=== PATIENT | female | born 1990 | race American Indian/Alaskan Native ===

== ENCOUNTER 2016-06-26 12:59 | Emergency (ER) | payer MEDICAID ==
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
[2016-06-26] MEDS ORDERED: MOTRIN PO ONE (19:57)
[2016-06-26] MEDS ORDERED: FLEXERIL PO ONE (20:01)
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
[2016-06-26 20:24] VITALS: BP 116/81
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
== END 2016-06-26 20:55 | disposition home or self-care (01) ==
LOC: ED 12:59
DX: S89.91XA Unspecified injury of right lower leg, initial encounter (principal); W19.XXXA Unspecified fall, initial encounter; Y93.89 Activity, other specified; Y99.9 Unspecified external cause status; Y92.89 Other specified places as the place of occurrence of the external cause
CPT/HCPCS: 81025

== ENCOUNTER 2017-01-28 23:53 | Emergency (ER) | payer SELFPAY ==
[2017-01-29 00:16] VITALS: BP 135/63
[2017-01-29 01:27] LABS: Bilirubin,Urine NEG (Negative); Blood,Urine LG (Negative); Ketones,Urine NEG (Negative); Leukocyte Esterase,Urine TR (Negative); Mucus,Urine FEW /HPF; Nitrite,Urine NEG (Negative); Protein,Urine <15 mg/dL mg/dL (Negative); Urobilinogen,Urine < 2.0 mg/dL (<2.0)
[2017-01-29 01:33] LABS: RBC,Urine > 182.0 /HPF (0.0-6.0)
== END 2017-01-29 03:57 | disposition left against medical advice (07) ==
LOC: ED 23:53
DX: Z53.21 Procedure and treatment not carried out due to patient leaving prior to being seen by health care provider (principal)
CPT/HCPCS: 81001; 81025; 93005; 93010

== ENCOUNTER 2017-12-30 07:00 | Emergency (ER) | payer SELFPAY ==
[2017-12-30 07:36] VITALS: BP 114/67
--- NOTE | 2017-12-30 10:15 | Emergency Department Report ---
ED Neck Pain HPI Chief Complaint: Neck Pain/Injury Stated Complaint: LEFT SIDE PAIN Duration: 3 Days Neck Pain Location: Lateral Neck Severity: moderate Mechanism: Awkward Position Symptoms: Yes Pain with Movement, Yes Radiation to Left Upper Ext, No Radiation to Right Upper Ext, No Numbness, No Weakness, No Previous History Other History: This is a 27-year-old -[place] female who presents with neck pain is left side radiating to the left shoulder for 3 days. Patient states she woke up Tuesday in severe pain and can barely her neck. Patient states the day progressed she felt better but upon waking yesterday pain increase. She was on her way to work this morning and could not turn her head to the left second ear pain. Patient reports pain currently as 6 out of 10 on pain scale. Patient states it feels like "a crock is stuck in her neck". She thinks she slept in a year position. Patient denies numbness or tingling, deformity, swelling, bruising, recent injury. ED Review of Systems ROS: Stated complaint: LEFT SIDE PAIN Other details as noted in HPI Constitutional: denies: chills, fever Respiratory: denies: cough, shortness of breath, wheezing Cardiovascular: denies: chest pain, palpitations Gastrointestinal: denies: abdominal pain, nausea, diarrhea Musculoskeletal: arthralgia (neck pain). denies: back pain, joint swelling Skin: denies: rash, lesions Neurological: denies: headache, weakness, paresthesias Psychiatric: denies: anxiety, depression ED Past Medical Hx - Past Medical History Previous Medical History?: No - Surgical History Past Surgical History?: No - Social History Smoking Status: Current Some Day Smoker Substance Use Type: None - Medications Home Medications: Home Medications Medication Instructions Recorded Confirmed Last Taken Type Ondansetron [Zofran Odt] 4 mg PO Q8HR PRN #12 tab.rapdis 07/20/15 Unknown Rx Cyclobenzaprine [Flexeril] 10 mg PO QHS #24 tablet 06/26/16 Unknown Rx Ibuprofen [Motrin 800 MG tab] 800 mg PO Q8HR PRN #30 tablet 06/26/16 Unknown Rx Ibuprofen [Motrin 800 MG tab] 800 mg PO Q8HR PRN #12 tablet 12/30/17 Unknown Rx methOCARBAMOL [Robaxin TAB] 500 mg PO BID #10 tab 12/30/17 Unknown Rx Neck Pain Exam - Exam General: Vital signs noted. No distress. Alert and acting appropriately. HEENT: No Facial Pain, No Scalp Tenderness, No Contusion, No Abrasion, No Laceration Neck Pain: Yes Pain with Rotation Right (helpful muscle spasm on the left trapezius), Yes Pain with Rotation Left, Yes Pain with Extension, Yes Pain with Flexion, Yes pain with R Lateral Flexion, Yes Pain with L Lateral Flexion, No Midline Tenderness, No Right Paraspinal Tenderness, No Left Paraspinal Tenderness, No Right Trapezius Tenderness, No Left Trapezius Tenderness Chest: Yes Clear Lung Sounds, No Pain with Respirations Heart: Yes Regular, No Murmur Back: No Thoracic Tenderness, No Lumbar Tenderness Neuro: No Numbness, No Weakness, No Normal Reflexes, No Radicular Deficits ED Course Vital Signs 12/30/17 07:32 Temperature 98.8 F Pulse Rate 65 Respiratory 16 Rate Blood Pressure 114/67 O2 Sat by Pulse 100 Oximetry ED Medical Decision Making - Radiology Data Radiology results: report reviewed, image reviewed AP AND LATERAL SOFT TISSUES OF THE NECK: History: Neck pain. The contour of the upper airway appears within normal limits. The epiglottis is not enlarged. No prevertebral soft tissue swelling is apparent. No mass density or foreign body is evident. IMPRESSION: Normal study. - Medical Decision Making Patient was examined by me. Vitals are normal and patient is in no acute distress. Obtained a x-ray of soft tissues of neck. X-rays dictated by radiologist and no acute findings. Patient informed of results. Start ibuprofen and Robaxin for muscle spasm. Plan discussed with patient to discharge home and treat outpatient. Patient discharged home in stable condition. Follow up with PCP in 2-3 days. Critical care attestation.: If time is entered above; I have spent that time in minutes in the direct care of this critically ill patient, excluding procedure time. ED Disposition Clinical Impression: Neck pain on left side, Trapezius muscle spasm Disposition: TO HOME OR SELFCARE Is pt being admited?: No Does the pt Need Aspirin: No Condition: Stable Instructions: Muscle Spasm (ED), Cervical Radiculopathy (ED) Additional Instructions: Rest Use ice or heat on affected area for 20 minutes and off for 2 hours. Take pain medication as needed for pain. Don't drive or operate heavy machinery while taking muscle relaxers because they may cause drowsiness. Follow up with Primary Care Provider in 2-3 days. Prescriptions: Ibuprofen [Motrin 800 MG tab] 800 mg PO Q8HR PRN #12 tablet PRN Reason: Pain , Severe (7-10) methOCARBAMOL [Robaxin TAB] 500 mg PO BID #10 tab Referrals: [facility] [place]Note 3[facility] [Outside] - 3-5 Days [facility] [Outside] - 3-5 Days [facility] [Outside] - 3-5 Days Forms: Work/School Release Form(ED) Time of Disposition: 12:20 Print Language: MONGOLIAN
--- NOTE | 2017-12-30 11:17 | XRay Report ---
AP AND LATERAL SOFT TISSUES OF THE NECK: History: Neck pain. The contour of the upper airway appears within normal limits. The epiglottis is not enlarged. No prevertebral soft tissue swelling is apparent. No mass density or foreign body is evident. IMPRESSION: Normal study.
[2017-12-30] MEDS ORDERED: TORADOL IM ONE (12:17)
== END 2017-12-30 12:35 | disposition home or self-care (01) ==
LOC: ED 07:00
DX: M62.838 Other muscle spasm (principal); M54.2 Cervicalgia; F17.200 Nicotine dependence, unspecified, uncomplicated
CPT/HCPCS: 70360; 96372; 99283; J1885

== ENCOUNTER 2018-01-05 10:28 | Emergency (ER) | payer SELFPAY ==
--- NOTE | 2018-01-05 10:54 | Emergency Department Report ---
ED Neck Pain/Injury HPI - General Chief Complaint: Neck Pain/Injury Stated Complaint: NECK/SHOULDER PAIN Time Seen by Provider: 01/05/18 10:43 Mode of arrival: Ambulatory Limitations: No Limitations - History of Present Illness Initial Comments: Patient is a 27-year-old black female who works carrying heavy dishes at work who has pain in the left neck radiating to the left arm. Patient states this is been present for approximately a week and a half. Patient states is a throbbing aching pain. States the pain is 6 out of 10 in severity. Patient's been taking ibuprofen and Robaxin with minimal relief. Patient states is some numb sensations in the left upper extremity at times. Patient denies any fevers chills or trauma. - Related Data Previous Rx's Medication Instructions Recorded Last Taken Type Ondansetron [Zofran Odt] 4 mg PO Q8HR PRN #12 tab.rapdis 07/20/15 Unknown Rx Cyclobenzaprine [Flexeril] 10 mg PO QHS #24 tablet 06/26/16 Unknown Rx Ibuprofen [Motrin 800 MG tab] 800 mg PO Q8HR PRN #30 tablet 06/26/16 Unknown Rx Ibuprofen [Motrin 800 MG tab] 800 mg PO Q8HR PRN #12 tablet 12/30/17 Unknown Rx methOCARBAMOL [Robaxin TAB] 500 mg PO BID #10 tab 12/30/17 Unknown Rx methOCARBAMOL [Robaxin TAB] 500 mg PO Q6H PRN #15 tablet 01/05/18 Unknown Rx predniSONE [Deltasone] 20 mg PO QDAY #5 tab 01/05/18 Unknown Rx traMADol [Ultram] 50 mg PO Q6HR PRN #12 tablet 01/05/18 Unknown Rx Allergies Allergy/AdvReac Type Severity Reaction Status Date / Time No Known Allergies Allergy Unverified 07/20/15 09:16 ED Review of Systems ROS: Stated complaint: NECK/SHOULDER PAIN Other details as noted in HPI Comment: All other systems reviewed and negative ED Past Medical Hx - Past Medical History Previous Medical History?: No - Surgical History Past Surgical History?: No - Social History Smoking Status: Current Every Day Smoker Substance Use Type: None - Medications Home Medications: Home Medications Medication Instructions Recorded Confirmed Last Taken Type Ondansetron [Zofran Odt] 4 mg PO Q8HR PRN #12 tab.rapdis 07/20/15 Unknown Rx Cyclobenzaprine [Flexeril] 10 mg PO QHS #24 tablet 06/26/16 Unknown Rx Ibuprofen [Motrin 800 MG tab] 800 mg PO Q8HR PRN #30 tablet 06/26/16 Unknown Rx Ibuprofen [Motrin 800 MG tab] 800 mg PO Q8HR PRN #12 tablet 12/30/17 Unknown Rx methOCARBAMOL [Robaxin TAB] 500 mg PO BID #10 tab 12/30/17 Unknown Rx methOCARBAMOL [Robaxin TAB] 500 mg PO Q6H PRN #15 tablet 01/05/18 Unknown Rx predniSONE [Deltasone] 20 mg PO QDAY #5 tab 01/05/18 Unknown Rx traMADol [Ultram] 50 mg PO Q6HR PRN #12 tablet 01/05/18 Unknown Rx ED Physical Exam - General Limitations: No Limitations General appearance: alert, in no apparent distress - Head Head exam: Present: atraumatic, normocephalic - Eye Eye exam: Present: normal appearance - ENT ENT exam: Present: mucous membranes moist - Neck Neck exam: Present: normal inspection, tenderness (left side of the neck exhibits tenderness on palpation but the patient does have full range of motion) - Respiratory Respiratory exam: Present: normal lung sounds bilaterally. Absent: respiratory distress, wheezes, rales, rhonchi - Cardiovascular Cardiovascular Exam: Present: regular rate, normal rhythm. Absent: systolic murmur, diastolic murmur, rubs, gallop - GI/Abdominal GI/Abdominal exam: Present: soft, normal bowel sounds. Absent: distended, tenderness, guarding - Extremities Exam Extremities exam: Present: normal inspection - Back Exam Back exam: Present: normal inspection - Neurological Exam Neurological exam: Present: alert, oriented X3 - Psychiatric Psychiatric exam: Present: normal affect, normal mood - Skin Skin exam: Present: warm, dry, intact, normal color. Absent: rash ED Course Vital Signs 01/05/18 10:32 Temperature 98.3 F Pulse Rate 63 Respiratory 18 Rate Blood Pressure 118/74 O2 Sat by Pulse 100 Oximetry ED Medical Decision Making - Medical Decision Making Patient be given several Ultram for pain and will start a Medrol Dosepak. Patient will continue with Robaxin as well. Patient will be referred to orthopedics Critical care attestation.: If time is entered above; I have spent that time in minutes in the direct care of this critically ill patient, excluding procedure time. ED Disposition Clinical Impression: Cervical radiculopathy Disposition: DC-01 TO HOME OR SELFCARE Is pt being admited?: No Does the pt Need Aspirin: No Condition: Stable Instructions: Cervical Radiculopathy (ED) Referrals: MAIDA BEATTY MD [Staff Physician] - 3-5 Days Time of Disposition: 10:53
[2018-01-05 11:15] VITALS: BP 112/72
== END 2018-01-05 11:07 | disposition home or self-care (01) ==
LOC: ED 10:28
DX: M54.12 Radiculopathy, cervical region (principal); F17.200 Nicotine dependence, unspecified, uncomplicated
CPT/HCPCS: 99282